=== PATIENT | female | born 1995 | race Caucasian/White ===

== ENCOUNTER 2020-04-06 04:19 | Emergency (ER) | payer OTHER ==
[~2020-04-06] VITALS: Ht 160 cm; Wt 44.9 kg
[2020-04-06 04:21] VITALS: Ht 160 cm; Wt 44.9 kg
[2020-04-06 05:31] VITALS: BP 105/73
== END 2020-04-06 05:31 | disposition home or self-care (01) ==
LOC: ED 04:19
DX: Z02.89 Encounter for other administrative examinations (principal)